=== PATIENT | female | born 1980 | race Caucasian/White ===

== ENCOUNTER 2017-05-05 16:03 | Emergency (ER) | payer OTHER ==
--- NOTE | 2017-05-05 16:07 | ED Physician Documentation ---
Abdominal Pain - HISTORIAN Historian: patient - HPI Stated Complaint: abdominal pain Chief Complaint: Abdominal Pain Onset: hours (2) Duration: constant, sudden-onset, worse Timing: worse Context: denies: out of country travel, bad food, recent trauma Severity: moderate Quality: pain, sharp Associated Symptoms: denies: fever, chills, vomiting, loss of appetite, chest pain Exacerbated by: other (she states she cannot get comfortable ) Relieved by: nothing Further Comments: yes (She states at 230 pm today she started with the abdominal pain. She reports the pain is in her bladder area on both sides of her lower abdomen and bilateral low back. Denies a fever. At the time of admission she is not able to urinate. Denies any blood previously with urination. She has no injury. She states that she has a history of kidney stones. She is not currently on any treatment for that) - ROS CONST: no problems GI/: problems urinating CVS/RESP: denies: shortness of breath, cough MS/SKIN/LYMPH: denies: rash NEURO/PSYCH: denies: headache, dizziness - SOCIAL HX Smoking History: non-smoker - FAMILY HX Family History: none - PAST HX Past History: other (kidney stones, joint pain, ) Ischemic Bowel Risk Factors: none Other History: none Surgeries/Procedures: hysterectomy Immunizations: referred to PCP Home Medications: Ambulatory Orders Medication Instructions Recorded Celecoxib [Celebrex] 50 mg PO 05/05/17 Estradiol [Estrace] 1 mg PO 05/05/17 Omeprazole [Prilosec] 10 mg PO 05/05/17 Phenazopyridine HCl [Urinary Pain mg PO 05/05/17 Relief] Ranitidine HCl [Zantac] 75 mg PO 05/05/17 Allergies/Adverse Reactions: Allergies Allergy/AdvReac Type Severity Reaction Status Date / Time bee venom (honey bee) Allergy Verified 05/05/17 16:33 - VITAL SIGNS Vital Signs: Vital Signs Temp Pulse Resp BP Pulse Ox 97.2 F L 77 20 138/72 100 05/05/17 16:03 05/05/17 16:03 05/05/17 16:03 05/05/17 16:03 05/05/17 16:03 - REVIEWED ASSESSMENTS Nursing Assessment Reviewed: Yes Vitals Reviewed: Yes Progress - Progress Progress: 1723: In bathroom on toilet. She states she feels the pain is not constipation it is from her bladder. Explained that her stool could cause this pain. She states the pain is not being helped with meds. I discussed meds given. She reports they are not significant enough. She was yelling in the bathroom got up and walked past the provider (myself) DG ED Results Lab/Radiology - Lab Results Lab Results: Lab Results 05/05/17 05/05/17 16:25 16:25 WBC 7.60 K/ul K/ul (4.00-12.00) RBC 4.76 M/ul M/ul (3.90-5.20) Hgb 15.2 g/dL g/dL (12.0-16.0) Hct 42.5 % % (34.5-46.5) MCV 89.2 fl fl (80.0-100.0) MCH 31.8 pg pg (28.0-34.0) MCHC 35.7 g/dL g/dL (30.0-36.0) RDW 12.8 % % (11.3-14.3) Plt Count 242 K/mm3 K/mm3 (130-400) Sodium 137 mmol/L mmol/L (136-145) Potassium 2.8 mmol/L L mmol/L (3.5-5.1) Chloride 95 mmol/L L mmol/L (98-107) Carbon Dioxide 27 mmol/L mmol/L (22-30) BUN 17 mg/dL mg/dL (7-17) Creatinine 0.70 mg/dL mg/dL (0.52-1.04) Estimated Creat Clear 169 Est GFR ( Amer) > 60 (60 - ) Est GFR (Non-Af Amer) > 60 (60 - ) Glucose 101 mg/dL mg/dL (74-106) Calcium 10.2 mg/dL mg/dL (8.4-10.2) Total Bilirubin 1.1 mg/dL mg/dL (0.2-1.3) AST 36 U/L U/L (15-46) ALT 38 U/L U/L (13-69) Alkaline Phosphatase 71 U/L U/L (38-126) Total Protein 8.5 g/dL H g/dL (6.3-8.2) Albumin 4.7 g/dL g/dL (3.5-5.0) - Radiology Radiology Impressions: Examination: CT Abdomen/pelvis History: Right abdominal discomfort Comparison exams: None available Technique: CT Abdomen/pelvis without IV protocol. Findings: Liver, spleen, adrenals, pancreas, kidneys and gallbladder are without gross irregularity given exam technique. No gallstone. No suspicious renal calcifications. Ureters are mildly prominent in their course through the abdomen and pelvis. No central calcifications. Bladder margin within normal limits. Abdominal aorta without aneurysm or peripheral atherosclerotic disease. Cardiac silhouette is not enlarged. No pericardial effusion. Bowel unopacified limiting evaluation. No abnormal dilation. Stool within the large bowel limiting sensitivity. No mesenteric inflammatory changes or free fluid. Appendix not visualized. No pericecal inflammation. Surgical changes at the gastroesophageal junction associate with mild thickening of the distal esophagus. Osseous structures within normal limits. Lung bases without infiltrate. No effusion. Impression: No abdominal mass or acute inflammatory process. No abnormal bowel dilation or inflammation. Significant large bowel stool - constipation. No gallstone. No suspicious renal or ureteric calcifications. No lung base consolidation or effusion. Electronically signed on May 05, 2017 5:11:19 PM [employer] TECHNICIAN by: Anton Baum - Orders Orders: ED Orders Category Date Time Status Place IV Lock 1T Care 05/05/17 16:[address] ABD & PELVIS W/O CON Stat Exams 05/05/17 Ordered CBC/PLATELET/DIFF Stat Lab 05/05/17 16:25 Completed CMP Stat Lab 05/05/17 16:25 Completed UA W/MICRO IF INDICATED Routine Lab 05/05/17 16:08 Ordered 0.9 % Sodium Chloride [Normal Saline] 1,000 ml Med 05/05/17 16:12 Discontinued IV .STK-MED 0.9 % Sodium Chloride [Normal Saline] 1,000 ml Med 05/05/17 16:12 Discontinued IV Q1H Ketorolac Tromethamine [Toradol] Med 05/05/17 16:12 Discontinued 30 mg .ROUTE .STK-MED ONE Ketorolac Tromethamine [Toradol] Med 05/05/17 16:12 Discontinued 30 mg IVP NOW ONE Potassium Chloride [Klor-Con M20] Med 05/05/17 16:59 Discontinued 40 meq PO NOW ONE fentaNYL CITRATE/PF [Duragesic] Med 05/05/17 16:42 Discontinued 50 mcg IVP NOW ONE Abdominal Pain Physical Exam - Physical Exam General Appearance: alert, moderate distress EENT: eye inspection normal NECK: normal inspection RESPIRATORY: no resp distress, chest non-tender CVS: reg rate & rhythm, heart sounds normal, equal pulses, no murmur ABDOMEN: soft, tenderness (she is not able to sit still for full exam ) EXTREMITIES: non-tender NEURO: oriented X3, CN's nml as tested, motor nml, sensation nml Vital Signs: Vital Signs Temp Pulse Resp BP Pulse Ox 97.2 F L 77 20 138/72 100 05/05/17 16:03 05/05/17 16:03 05/05/17 16:03 05/05/17 16:03 05/05/17 16:03 Discharge Clincal Impression: Constipation Qualifiers: Constipation type: unspecified constipation type Qualified Code(s): K59.00 - Constipation, unspecified Referrals: Primary Doctor,No [Primary Care Provider] - 2 Days Comments: [id number] mEq daily x15 tabs Magnesium Citrate take 1/2 bottle now and repeat in 2 hours if no results Enema if needed Increase fluids Follow up with PCP Monday for repeat CMP Return to ER for increasing symptoms Condition: Stable Disposition: HOME, SELF-CARE Decision to Admit: NO Date of Decison to Admit: 05/05/17 Decision Time: 17:21
[2017-05-05] MEDS ORDERED: KETOROLAC TROMETHAMINE 30 MG/1ML VIAL IVP ONE (16:12)
[2017-05-05] MEDS ORDERED: 0.9 % SODIUM CHLORIDE 1,000 ML IV ONE ×2 (16:12)
[2017-05-05] MEDS ORDERED: KETOROLAC TROMETHAMINE 30 MG/1ML VIAL ONE (16:12)
[2017-05-05] MEDS ORDERED: fentaNYL CITRATE/PF 100 MCG/ 2ML AMP IVP ONE (16:42)
[2017-05-05 16:43] LABS: MEAN CORPUSCULAR HEMOGLOBIN 31.8 pg (28.0-34.0); MEAN CORPUSCULAR VOLUME 89.2 fl (80.0-100.0)
[2017-05-05 16:52] LABS: eGFR (African) > 60; eGFR (Non-African) > 60
[2017-05-05] MEDS ORDERED: POTASSIUM CHLORIDE 20 MEQ TABLET.ER PO ONE (16:59)
[2017-05-05 17:26] LABS: MONOCYTES % 5 % (0-11); SEGMENTED NEUTROPHILS % 56 % (39-79)
[2017-05-05 17:39] VITALS: BP 135/77
--- NOTE | 2017-05-05 19:24 | Diagnostic Imaging Report ---
[facility] [id number] [facility] [address] [place], [place]. [address] Report Submission Date: May 05, 2017 5:11:19 PM TECHNICAL SERVICES CONSULTANT Patient Study Name: PAVAN SAMANO Date: May 05, 2017 4:31:32 PM TECHNICAL SERVICES CONSULTANT Modality Type: CT\SR Gender: F Description: CT ABD & PELVIS W/O CO : 76 Institution: [facility] Physician: N[facility]ODS Examination: CT Abdomen/pelvis History: Right abdominal discomfort Comparison exams: None available Technique: CT Abdomen/pelvis without IV protocol. Findings: Liver, spleen, adrenals, pancreas, kidneys and gallbladder are without gross irregularity given exam technique. No gallstone. No suspicious renal calcifications. Ureters are mildly prominent in their course through the abdomen and pelvis. No central calcifications. Bladder margin within normal limits. Abdominal aorta without aneurysm or peripheral atherosclerotic disease. Cardiac silhouette is not enlarged. No pericardial effusion. Bowel unopacified limiting evaluation. No abnormal dilation. Stool within the large bowel limiting sensitivity. No mesenteric inflammatory changes or free fluid. Appendix not visualized. No pericecal inflammation. Surgical changes at the gastroesophageal junction associate with mild thickening of the distal esophagus. Osseous structures within normal limits. Lung bases without infiltrate. No effusion. Impression: No abdominal mass or acute inflammatory process. No abnormal bowel dilation or inflammation. Significant large bowel stool - constipation. No gallstone. No suspicious renal or ureteric calcifications. No lung base consolidation or effusion. Electronically signed on May 05, 2017 5:11:19 PM TECHNICAL SERVICES CONSULTANT by: Anton ROSA
[2017-05-06 07:15] LABS: APPEARANCE,URINE CLEAR (CLEAR); COLOR,URINE YELLOW (YELLOW); OCCULT BLOOD,URINE TR (NEGATIVE); UROBILINOGEN URINE 0.2 Eu (0.2-1.0)
== END 2017-05-05 17:37 | disposition home or self-care (01) ==
LOC: ED 16:03
DX: K59.00 Constipation, unspecified (principal); R10.84 Generalized abdominal pain
CPT/HCPCS: 36415; 74176; 80053; 81002; 85025; 96361; 96374; 96375; 99283; A9270; J1885; J3010; J7030; S1016